=== PATIENT | female | born 1950 | race Caucasian/White ===

== ENCOUNTER 2016-11-06 08:58 | Observation (INO) | payer OTHER ==
[~2016-11-06] VITALS: Ht 162.6 cm; Wt 121.8 kg
[~2016-11-06 08:58] MED LIST: ASPI-119 PO; ATEN50TA PO; GABA300C5 PO; GELFOAM SIZE 100 ONE; GENTAMICIN SULFATE 80 MG/2 ML VIAL ONE; GLIP10TA6 PO; GLIP5TAB8 PO; HYDR-3133 PO; LIDOCAINE 1%/EPINEPHrine 1:100,000 SOLN 20 ML VIAL ONE; THROMBIN (TOPICAL) 5,000 UNIT VIAL ONE; TRIA37.5 PO; VITA400C28 PO
[2016-11-06] MEDS ORDERED: SODIUM CHLORID 0.9% 500 ML IV PRN (09:30)
[2016-11-06] MEDS ORDERED: CHLORHEXIDINE GLUCONATE 2 % 1 PACK (2 CLOTHS) TOPICAL PRN (09:30)
[2016-11-06] MEDS ORDERED: METOPROLOL TARTRATE 25 MG TAB PO PRN (09:30)
[2016-11-06] MEDS ORDERED: INSULIN HUMAN REGULAR 1,000 UNITS/10 ML VIAL SQ PRN (09:30)
[2016-11-06] MEDS ORDERED: ceFAZolin 2 GM PREMIX 50 ML IV SCH (09:30)
[2016-11-06] MEDS ORDERED: LACTATED RINGER'S 1000 ML INJ 1,000 ML IV SCH (09:30)
[2016-11-06] MEDS ORDERED: POVIDONE IODINE 5% (ANTISEPSIS KIT) 4 APPLICATIONS EACH NARE PRN (09:30)
[2016-11-06] MEDS ORDERED: LACTATED RINGER'S 1000 ML IV PRN (09:30)
[2016-11-06] MEDS ORDERED: CLINDAMYCIN PHOS 600 MG/4 ML VIAL ONE (10:13)
[2016-11-06] MEDS ORDERED: SODIUM CHLORIDE 0.9% INJ 100 ML ONE (10:14)
[2016-11-06 10:15] VITALS: BP 167/76; PULSE 55; RESP 20; TEMP 98.5; O2SAT 96
[2016-11-06] MEDS ORDERED: CLINDAMYCIN 600 MG/NS 100 ML IV ONE ×2 (10:30)
[2016-11-06] MEDS ORDERED: ACETAMINOPHEN 1000 MG/100 ML VIAL IV ONE (11:41)
[2016-11-06] MEDS ORDERED: MIDAZOLAM HCL 2 MG/2 ML VIAL ONE (11:42)
[2016-11-06] MEDS ORDERED: FAMOTIDINE 20 MG/2 ML VIAL ONE (11:42)
[2016-11-06] MEDS ORDERED: DEXAMETHASONE SOD PHOS 4 MG/ML VIAL ONE (11:42)
[2016-11-06] MEDS ORDERED: LACTATED RINGER'S 1000 ML INJ 1,000 ML IV ONE (12:00)
[2016-11-06] MEDS ORDERED: NEOSTIGMINE 3 MG/3 ML SYR IV ONE (12:00)
[2016-11-06] MEDS ORDERED: PROPOFOL 200 MG/20 ML AMP IV ONE (12:00)
[2016-11-06] MEDS ORDERED: ePHEDrine/NS 25 MG/5 ML SYR IV ONE (12:00)
[2016-11-06] MEDS ORDERED: ONDANSETRON HCL 4 MG/2 ML VIAL IV PUSH ONE (12:00)
[2016-11-06] MEDS ORDERED: BUPIVACAINE LIPOSOME PF 1.3% 20 ML VIAL INFIL ONE (15:24)
[2016-11-06] MEDS ORDERED: ONDANSETRON HCL 4 MG/2 ML VIAL IV PRN (16:00)
[2016-11-06] MEDS ORDERED: MORPHINE SULFATE 4 MG/ML INJ IV PRN (16:00)
[2016-11-06] MEDS ORDERED: ACETAMINOPHEN/HYDROcodone 325 MG/5 MG TAB PO PRN (16:00)
[2016-11-06] MEDS ORDERED: NALOXONE HCL 0.4 MG/ML AMP IV PRN (16:00)
[2016-11-06] MEDS ORDERED: HYDROmorphone HCL PF 1 MG/ML VIAL IV PRN (16:00)
[2016-11-06] MEDS ORDERED: METHOCARBAMOL 500 MG TAB PO PRN (16:00)
[2016-11-06] MEDS ORDERED: SODIUM CHLORIDE 0.9% FLUSH 5 ML FLUSH IVF PRN (16:00)
[2016-11-06] MEDS ORDERED: DEXTROSE 50% IN WATER 50 ML VIAL(D50) IV PUSH PRN (16:15)
[2016-11-06] MEDS ORDERED: GLUCAGON 1 MG/ML VIAL OTHER PRN (16:15)
--- NOTE | 2016-11-06 16:19 | PD.OP ---
Operative Report Date of Surgery: November 06, 2016 Preoperative Diagnosis: (1) Radiculopathy (2) Spondylosis of lumbar joint (3) Lumbar canal stenosis 1. L4 5 spondylosis and degenerative disc disease with facet instability 2. L4 5 stenosis 3. Bilateral L5 radiculopathy 4. Neurogenic claudication Postoperative Diagnosis: (1) Radiculopathy (2) Lumbar canal stenosis (3) Spondylosis of lumbar joint 1. L4 5 spondylosis and degenerative disc disease with facet instability 2. L4 5 stenosis 3. Bilateral L5 radiculopathy 4. Neurogenic claudication Procedure: 1. Bilateral L4 5 decompressive semi-laminectomy, medial facetectomy, decompression spinal canal and bilateral L5 nerve root-microtechnique 2. Placement L4 5 interspinous process decompression device (Coflex) Anesthesia: Gen. Surgeon: Adarsh Walls Cable Mock Up Assembler(s): Zulma Cartwright Operation and Findings: Procedure in detail: The patient was brought into the operating room and general endotracheal anesthesia induced without difficulty. MYNOR hose and sequential compression devices were placed. The Jha catheter was placed. Lines were established by anesthesia. The patient was positioned on the concentric Mariusz table with the side bolsters and all extremities appropriately padded. Appropriate timeout procedure was performed with all personnel present and in agreement. 1% Xylocaine with epinephrine was used for local infiltration over the incision site which was made at the midline L4 5 level. The incision was carried sharply down to the lumbodorsal fascia which was incised adjacent to the spinous processes. Mcgregor elevator was used for subperiosteal elevation of paraspinous musculature and fascia away from the lamina and spinous process. The deep self-retaining retractor was placed. The appropriate levels were verified with intraoperative C-arm. Microscope was moved into place and used for the remainder of the procedure including the closure. At the L4 5 level starting on the right side and then working across the midline to the opposite side, the TPS drill with a 5 mm bone bur was used to remove the inferior one third of the more cephalad lamina and the superior aspect of the more caudal lamina along with a moderate amount of the bilateral medial facet, taking care not to disrupt the integrity of the facet or pars intra-articularis. There appeared to be at least mild instability of the L4 5 facet prior to the Coflex placement. Great care was taken to remove as little of the facet as possible during the decompression portion of the procedure. The hypertrophied ligamentum flavum was elevated away from the thecal sac with the thin ligament dissector and resected with the 15 blade knife and the Kerrison rongeur out to the level of the deep lateral recess to completely decompress the thecal sac and exiting nerve roots. The exiting nerve roots were followed to the level of the medial pedicle to ensure that they were well decompressed. At the L4 5 level on each side, the superior aspect of the more inferior facet along with hypertrophied ligament at the medial foramen were removed with the Kerrison rongeur to perform the bilateral foraminotomy. The interspinous ligament at the L4 5 level was very deteriorated, with the spinous processes mostly [id number]. The [place] Lance rongeur was used to remove the remaining interspinous ligament and decorticate the inferior L 4 and superior L 5 spinous process edge. The TPS drill was used to flatten out the dorsal aspect of the L4 and L5 lamina, taking care not to compromise the integrity of the lamina. The 16 mm Coflex trial was then placed and appeared to give good support to the spinous processes and facets. Any remaining soft tissue along the interspinous region and epidural space and interlaminar region was carefully removed to provide a clean tract for the Coflex device. The 16 mm Coflex device was then placed at the L4-5 level with the anterior aspect of the device placed as anterior as possible without compromising the thecal sac. The side wings were crimped at the L4 and L5 levels to secure the device. The placement was checked with intraoperative C-arm and felt to be satisfactory. A blunt hook was passed beneath the anterior aspect of the Coflex device to make certain that there was no compromise of the spinal canal. There appeared to be excellent support of the lamina and facet after the device was placed. The nerve roots appeared well decompressed at the end of the procedure. No spinal fluid leakage was encountered. The disc and annulus was visualized to make sure that there was no significant disc displacement or herniation. Bleeding was carefully controlled with the bipolar forceps. The closure was performed with 0 Vicryl interrupted for the deep and superficial fascia, with 3-0 Vicryl interrupted subcutaneous closure, and 4-0 Vicryl running subcuticular closure. A dressing of sterile Mastisol, Steri- Strips, and Primapore was placed. The patient was taken to recovery room in stable condition. All counts were correct at the end of the case. Estimated blood loss was 50 cc. Adarsh Walls MD November 06, 2016 16:19
[2016-11-06] MEDS ORDERED: fentaNYL CITRATE 250 MCG/5 ML AMP ONE (16:35)
[2016-11-06] MEDS: 1/2 NS + KCL 20 MEQ INJ 1,000 ML IV SCH (16:45)
--- NOTE | 2016-11-06 17:47 | RADRPT ---
EXAM DATE/TIME: 11/06/2016 12:55 [facility] COMPARISON: No previous studies available for comparison. INDICATIONS : L4-5 Laminectomy with Coflex placement. MEDICAL HISTORY : Hypertension. Diabetes mellitus type II. Arthritis. SURGICAL HISTORY : None. ENCOUNTER: Subsequent ACUITY: 1 week PAIN SCORE: Non-responsive. LOCATION: Lumbar spine. FINDINGS: A single magnified C-arm spot views a lateral projection at the lower lumbar spine. Dorsal skin retra ctors are seen within the interspinous device noted between the L4 and L5 spinous processes. CONCLUSION: Limited image as detailed above. Cristian Bhakta Jr., MD on November 06, 2016 at 17:44 Board Certified Radiologist. This report was verified electronically.
[2016-11-06 18:00] VITALS: BP 153/68; PULSE 54; RESP 19; TEMP 95.3; O2SAT 96
[2016-11-06] MEDS: GABAPENTIN 300 MG CAP PO SCH (18:31)
[2016-11-06 20:25] VITALS: BP 133/59; PULSE 62; RESP 17; TEMP 97.7; O2SAT 96
[2016-11-06] MEDS: INSULIN NovoLIN REGULAR SUPPLEMENTAL SCALE SQ SCH (21:00)
[2016-11-06] MEDS: SODIUM CHLORIDE 0.9% FLUSH 5 ML FLUSH IVF SCH (21:00)
[2016-11-06] MEDS: hydrOXYzine HCL 25 MG TAB PO SCH (21:13)
[2016-11-06] MEDS: DOCUSATE SODIUM 100 MG CAP PO SCH (21:13)
[2016-11-07] VITALS (8 sets, daily range): BP systolic 105–151; BP diastolic 51–70; PULSE 55–67; RESP 16–18; TEMP 96.8–98.5; O2SAT 93–96
[2016-11-07] MEDS: 1/2 NS + KCL 20 MEQ INJ 1,000 ML IV SCH ×3 (02:00→20:53)
[2016-11-07] MEDS: ACETAMINOPHEN/HYDROcodone 325 MG/10 MG TAB PO PRN ×5 (03:56→20:34)
[2016-11-07] MEDS: glipiZIDE 10 MG TAB PO SCH ×2 (06:30→16:34)
[2016-11-07] MEDS: INSULIN NovoLIN REGULAR SUPPLEMENTAL SCALE SQ SCH ×4 (06:31→20:50)
[2016-11-07 07:57] LABS: AUTOMATED NEUTROPHIL # 8.7 TH/MM3 (1.8-7.7); BASOPHIL % 0.3 % (0.0-2.0); EOSINOPHIL % 0.2 % (0.0-4.0); HEMATOCRIT 40.6 % (35.0-46.0); HEMO FLAGS DIFF FINAL; LYMPH % 16.2 % (9.0-44.0); LYMPHOCYTE # 1.8 TH/MM3 (1.0-4.8); MEAN CORPUSCULAR HEMOGLOBIN 28.5 PG (27.0-34.0); MEAN CORPUSCULAR HGB CONC 33.5 % (32.0-36.0); MONO % 6.6 % (0.0-8.0); NEUT % 76.7 % (16.0-70.0); PLATELET COUNT 233 TH/MM3 (150-450); RED BLOOD COUNT 4.78 MIL/MM3 (4.00-5.30); RED CELL DISTRIBUTION WIDTH 14.2 % (11.6-17.2); WHITE BLOOD COUNT 11.3 TH/MM3 (4.0-11.0)
[2016-11-07 07:58] LABS: BICARBONATE 30.7 MEQ/L (21.0-32.0); POTASSIUM 3.9 MEQ/L (3.5-5.1)
[2016-11-07] MEDS: GABAPENTIN 300 MG CAP PO SCH ×3 (08:32→16:39)
[2016-11-07] MEDS: PANTOPRAZOLE SOD 40 MG DELAYED RELEASE TAB PO SCH (08:32)
[2016-11-07] MEDS: ATENOLOL 50 MG TAB PO SCH (08:33)
[2016-11-07] MEDS: DOCUSATE SODIUM 100 MG CAP PO SCH ×2 (08:33→20:34)
[2016-11-07] MEDS: CHOLECALCIFEROL (VIT D3) 400 UNIT TAB PO SCH (08:33)
[2016-11-07] MEDS: TRIAMTERENE/HCTZ 37.5 MG/25 MG TAB PO SCH (08:33)
[2016-11-07] MEDS: SODIUM CHLORIDE 0.9% FLUSH 5 ML FLUSH IVF SCH ×2 (08:35→20:35)
[2016-11-07] MEDS ORDERED: NON-FORMULARY DRUG (Cholecalciferol (Vitamin D) 1 TAB) PO SCH (09:00)
--- NOTE | 2016-11-07 13:34 | HHI.NSPN ---
(Vikram Pike) Note Status Status: Progress Note (Vikram Pike) Interval History Interval History 11/06: Patient has a history of L4-5 spondylosis and degenerative disc disease with facet instability, L4-5 stenosis, bilateral L5 radiculopathy & neurogenic claudication. She presented to [facility] for a bilateral L4-5 decompressive semi-laminectomy, medial facetectomy, decompression spinal canal & bilateral L5 nerve root-microtechnique and placement L4 5 interspinous process decompression device (Coflex). Post-operatively the patient was admitted to a regular med/surg floor for further care and monitoring. 11/07: The patient was doing well this morning when seen. When she was seen again this afternoon she was extremely drowsy and had some dizziness. She was tolerating a diet. (Vikram Pike) Labs, Micro, & Vital Signs Results Allergies Coded Allergies Type Severity Reaction Last Updated Verified Flu Vaccine Allergy Unknown 11/06/16 Yes Penicillin Allergy Unknown 11/06/16 Yes Prednisone Allergy Unknown 11/06/16 Yes Zithromax Allergy Unknown 11/06/16 Yes Recent Impressions Lumbar Spine X-Ray 11/06/16 0000 Signed Impressions: Service Date/Time: November 12:55 - CONCLUSION: Limited image as detailed above. Cristian Bhakta Jr., MD /// 06:00 18:00 06:00 18:00 06:00 18:00 Intake Total 1000 ml 240 ml 120 ml Output Total 100 ml 70 ml 25 ml Balance 900 ml 170 ml 95 ml Intake Oral 240 ml 120 ml IV Total 100 ml Other 900 ml Output Drainage Total 50 ml 70 ml 25 ml Estimated Blood Loss 50 ml # Voids 2 2 # Bowel Movements 0 0 Laboratory Tests Test 11/06/16 11/07/16 10:05 06:27 Blood Type O POSITIVE Antibody Screen NEGATIVE Blood Bank Comment White Blood Count 11.3 TH/MM3 Red Blood Count 4.78 MIL/MM3 Hemoglobin 13.6 GM/DL Hematocrit 40.6 % Mean Corpuscular Volume 85.0 FL Mean Corpuscular Hemoglobin 28.5 PG Mean Corpuscular Hemoglobin 33.5 % Concent Red Cell Distribution Width 14.2 % Platelet Count 233 TH/MM3 Mean Platelet Volume 8.1 FL Neutrophils (%) (Auto) 76.7 % Lymphocytes (%) (Auto) 16.2 % Monocytes (%) (Auto) 6.6 % Eosinophils (%) (Auto) 0.2 % Basophils (%) (Auto) 0.3 % Neutrophils # (Auto) 8.7 TH/MM3 Lymphocytes # (Auto) 1.8 TH/MM3 Monocytes # (Auto) 0.7 TH/MM3 Eosinophils # (Auto) 0.0 TH/MM3 Basophils # (Auto) 0.0 TH/MM3 CBC Comment DIFF FINAL Differential Comment Sodium Level 138 MEQ/L Potassium Level 3.9 MEQ/L Chloride Level 100 MEQ/L Carbon Dioxide Level 30.7 MEQ/L Anion Gap 7 MEQ/L Blood Urea Nitrogen 28 MG/DL Creatinine 1.28 MG/DL Estimat Glomerular Filtration 42 ML/MIN Rate Random Glucose 218 MG/DL Calcium Level 8.7 MG/DL Constitutional Vital Signs Date Time Temp Pulse Resp B/P Pulse Ox O2 Delivery O2 Flow Rate FiO2 11/07/16 12:35 94 21 11/07/16 08:00 97.2 56 18 125/61 95 11/07/16 04:40 96.9 59 17 151/70 96 11/07/16 00:30 96.8 60 17 127/62 95 11/06/16 20:26 21 11/06/16 20:25 97.7 62 17 133/59 96 11/06/16 18:00 95.3 54 19 153/68 96 11/06/16 17:40 97.8 52 16 125/61 96 Nasal Cannula 3 11/06/16 17:30 52 16 123/62 95 Nasal Cannula 3 11/06/16 17:15 51 16 126/60 94 Nasal Cannula 3 11/06/16 17:00 55 16 127/58 94 Nasal Cannula 3 11/06/16 16:45 58 16 137/63 93 Nasal Cannula 3 11/06/16 16:30 63 16 140/67 98 Simple Mask 8 11/06/16 16:15 99.6 76 20 136/72 97 Simple Mask 8 11/07/16 07:00 Intake Total 1360 ml Output Total 170 ml Balance 1190 ml (Vikram Pike) Review of Systems/Exam ROS Constitutional: Patient states that she feels very drowsy. She denies any fever or chills. Respiratory: She denies any shortness of breath or productive cough. Cardiac: She denies any chest pain, palpitations or irregular heart beat. GI: She denies any abdominal pain, nausea, vomiting or bowel incontinence. : She denies any bladder incontinence. MS: She has multiple thin linear discolourations to the left anterior arm. She denies any arm or leg pain or weakness. Back: She did have some back pain this morning related to position which medication helped with. Neuro: She has some dizziness. She denies any headache, numbness or tingling. Exam General: Patient states that she feels very drowsy. She denies any fever or chills. Respiratory: CTAB w/o W/R/R, equal excursion, non-laboured, on RA. Cardiac: S1S2 w/RRR w/o M/G/R, radial & pedal pulses 2+ bilaterally, cap refill < 2 sec. GI: Abdomen soft, nontender, positive bowel sounds. MS: Extremities normal except for multiple linear discolourations to the left anterior arm which is NTTP. Back: Intact post-surgical dressing w/dried sanguinous drainage to it, ANALI drain w/sanguinous drainage to bulb suction. Neuro: Asleep but awakens to verbal stimuli, oriented to person, place & time. Speech clear & appropriate. Follows simple commands. Sensation grossly intact to light touch to all extremities. Motor strength 5/5 to all major muscle flexion & extension muscle groups to the extremities. (Vikram Pike) Medications Current Medications Current Medications Medications (Trade) Dose Ordered Sig/Terence Route Start Time Stop Time Status Last Admin (NS Flush) 2 ml UNSCH PRN IVF 11/06/16 16:00 IV Flush 2 ml 2 ml BID IVF 11/06/16 21:00 11/06/16 21:00 (1/2 NS + KCl 20 Meq Inj) 1,000 ml @ 100 mls/hr Q10H IV 11/06/16 16:00 11/06/16 16:45 ([place] 5-325 Mg) 1 tab Q4H PRN PO 11/06/16 16:00 ([place] 10-325 Mg) 1 tab Q4H PRN PO 11/06/16 16:00 11/07/16 12:30 (Dilaudid Pf Inj) 0.5 mg Q3H PRN IV 11/06/16 16:00 (Morphine Inj) 4 mg Q3H PRN IV 11/06/16 16:00 (Narcan Inj) 0.4 mg UNSCH PRN IV 11/06/16 16:00 (Colace) 100 mg BID PO 11/06/16 21:00 11/07/16 08:33 (Protonix) 40 mg DAILY PO 11/07/16 09:00 11/07/16 08:32 (Zofran Inj) 4 mg Q6H PRN IV 11/06/16 16:00 (Robaxin) 500 mg Q8HR PRN PO 11/06/16 16:00 (Tenormin) 50 mg DAILY PO 11/07/16 09:00 11/07/16 08:33 (Neurontin) 300 mg TID PO 11/06/16 18:00 11/07/16 12:30 (Glucotrol) 10 mg BIDAC PO 11/07/16 07:00 11/07/16 06:30 (Atarax) 25 mg HS PO 11/06/16 21:00 11/06/16 21:13 (Maxzide 37.5-25 Mg) 1 tab DAILY PO 11/07/16 09:00 11/07/16 08:33 (D50w (Vial) Inj) 25 ml UNSCH PRN IV PUSH 11/06/16 16:15 (Glucagon Inj) 1 mg UNSCH PRN OTHER 11/06/16 16:15 (Vitamin D3) 400 units DAILY PO 11/07/16 09:00 11/07/16 08:33 (Vikram Pike) Medical Decision Making MDM Remarks (1) Radiculopathy (2) Spondylosis of lumbar joint (3) Lumbar canal stenosis 1. L4 5 spondylosis and degenerative disc disease with facet instability 2. L4 5 stenosis 3. Bilateral L5 radiculopathy 4. Neurogenic claudication POD # 1 () s/p: 1. Bilateral L4 5 decompressive semi-laminectomy, medial facetectomy, decompression spinal canal and bilateral L5 nerve root-microtechnique 2. Placement L4 5 interspinous process decompression device (Coflex) Patient basically doing well post-operatively, she is neurologically intact. The ANALI drain put out 120 mL overnight and another 25 mL since this morning when seen this afternoon. Decreased renal function. (Vikram Pike) Plan Plan Remarks Continue IVF of 1/2 NS w/KCl at 100 mL/hr Maintain dressing to surgical site PT to work w/patient Mobilise patient She is to wear the LSO brace when OOB Diet as tolerated Will keep the ANALI drain in place for now Plan to discharge patient home tomorrow (Vikram Pike) Attending Statement I have personally seen and examined the patient on the date of this note. Pertinent documentation and study results have been reviewed by the undersigned. I have personally developed the treatment plan and performed medical decision making. Agree with findings, exam, and treatment plan as noted above. Lower extremity sensorimotor and pain symptoms have essentially resolved postoperative. Moderate low back pain Moderate difficulty mobilizing out of bed Persistent moderate drain output Continue drain for now Plan discontinuation of the drain in a.m. and discharge home. Wound care, activity precautions, signs and symptoms to watch for and all been fully discussed with the patient and all questions answered. (Adarsh Walls MD ) Vikram Pike November 07, 2016 13:34 Adarsh Walls MD November 07, 2016 22:19
--- NOTE | 2016-11-07 17:48 | HHI.DCPOC ---
Discharge Care Plan Diagnosis: (1) Spondylosis of lumbar joint (2) Radiculopathy (3) Lumbar canal stenosis (4) Chronic Renal Failure / insufficiency, unspec Your Health Problems Are: Difficulty with ADL Incision/Drains Exercise Tolerance Goals to Promote Your Health * To prevent worsening of your condition and complications * To maintain your health at the optimal level Directions to Meet Your Goals Take your medications as prescribed Follow your dietary instruction Follow activity as directed Keep your appointments as scheduled Take your immunizations and boosters as scheduled If your symptoms worsen call your PCP, if no PCP go to Urgent Care Center or Emergency Room Smoking is Dangerous to Your Health. Avoid second hand smoke Call the 24-hour hour crisis hotline for domestic abuse at Vikram Pike November 07, 2016 17:48 Adarsh Walls MD November 07, 2016 22:21
--- NOTE | 2016-11-07 17:58 | HHI.DS ---
Discharge Summary Admission Date November 06, 2016 at 18:15 Discharge Date: November 09, 2016 Admitting Diagnosis (1) Radiculopathy (2) Spondylosis of lumbar joint (3) Lumbar canal stenosis 1. L4 5 spondylosis and degenerative disc disease with facet instability 2. L4 5 stenosis 3. Bilateral L5 radiculopathy 4. Neurogenic claudication (1) Radiculopathy ICD Code: M54.10 (2) Spondylosis of lumbar joint Diagnosis: Secondary ICD Code: M47.816 (3) Lumbar canal stenosis Diagnosis: Secondary ICD Code: M48.06 Procedures 1. Bilateral L4 5 decompressive semi-laminectomy, medial facetectomy, decompression spinal canal and bilateral L5 nerve root-microtechnique () 2. Placement L4 5 interspinous process decompression device (Coflex) () CBC/BMP: 11/07/16 0627 11/07/16 0627 Significant Findings Laboratory Tests Test 11/07/16 06:27 White Blood Count 11.3 TH/MM3 (4.0-11.0) Neutrophils (%) (Auto) 76.7 % (16.0-70.0) Neutrophils # (Auto) 8.7 TH/MM3 (1.8-7.7) Blood Urea Nitrogen 28 MG/DL (7-18) Creatinine 1.28 MG/DL (0.50-1.00) Estimat Glomerular Filtration 42 ML/MIN (>89) Rate Random Glucose 218 MG/DL (74-106) Hospital Course Patient has a history of L4-5 spondylosis and degenerative disc disease with facet instability, L4-5 stenosis, bilateral L5 radiculopathy & neurogenic claudication. She presented to [facility] on for a bilateral L4- 5 decompressive semi-laminectomy, medial facetectomy, decompression spinal canal & bilateral L5 nerve root-microtechnique and placement L4 5 interspinous process decompression device (Coflex). Post-operatively the patient was admitted to a regular med/surg floor for further care and monitoring. On the patient was doing well that morning. The ANALI drain had 120 mL output overnight. When she was seen again that afternoon she was extremely drowsy and had some dizziness. She was tolerating a diet and was able to ambulate without difficulty. The drain had 25 mL output from that morning to the time seen and it was decided to keep her another night. The patient's NAALI drain was removed but her blood sugar continued to be elevated on and Endocrinology was consulted. She was evaluated by Endocrinology on and it was felt that she was able to be discharged. Therefore she was discharged home later that day. Pt Condition on Discharge: Good Discharge Disposition: Discharge Home Discharge Instructions DIET: Follow Instructions for: As Tolerated, No Restrictions ACTIVITIES You can perform: Full Weight Bearing Activities to Avoid: Lifting/Bending, Strenuous Activity ADDITIONAL Activity Instructio: Wear the LSO brace for the next 10-14 days. Additional Information Avoid any products that contain aspirin or NSAIDs (ibuprofen, Advil, Aleve, Motrin, etc.) Keep the dressing to the surgical site dry for the next week. You may remove the dressing on Thursday and shower after that. Let the steri-strips off in the shower. Vikram Pike November 07, 2016 17:58
[2016-11-07] MEDS: hydrOXYzine HCL 25 MG TAB PO SCH (20:34)
[2016-11-07] MEDS ORDERED: HYDR-3516 PO (22:23)
[2016-11-08] VITALS (7 sets, daily range): BP systolic 135–160; BP diastolic 60–74; PULSE 53–76; RESP 18–22; TEMP 96.6–99.5; O2SAT 65–98
[2016-11-08] MEDS: ACETAMINOPHEN/HYDROcodone 325 MG/10 MG TAB PO PRN ×3 (03:54→14:37)
[2016-11-08] MEDS: glipiZIDE 10 MG TAB PO SCH ×2 (06:16→16:19)
[2016-11-08] MEDS: INSULIN NovoLIN REGULAR SUPPLEMENTAL SCALE SQ SCH ×4 (06:23→20:47)
[2016-11-08] MEDS: 1/2 NS + KCL 20 MEQ INJ 1,000 ML IV SCH ×3 (08:00→22:54)
[2016-11-08] MEDS: GABAPENTIN 300 MG CAP PO SCH ×3 (08:22→17:12)
[2016-11-08] MEDS: ATENOLOL 50 MG TAB PO SCH (08:30)
[2016-11-08] MEDS: TRIAMTERENE/HCTZ 37.5 MG/25 MG TAB PO SCH (08:30)
[2016-11-08] MEDS: CHOLECALCIFEROL (VIT D3) 400 UNIT TAB PO SCH (08:30)
[2016-11-08] MEDS: PANTOPRAZOLE SOD 40 MG DELAYED RELEASE TAB PO SCH (08:30)
[2016-11-08] MEDS: DOCUSATE SODIUM 100 MG CAP PO SCH ×2 (08:30→20:48)
[2016-11-08] MEDS: SODIUM CHLORIDE 0.9% FLUSH 5 ML FLUSH IVF SCH ×2 (08:33→20:47)
--- NOTE | 2016-11-08 11:56 | HHI.NSPN ---
(Misti Romero) Note Status Status: Progress Note (Misti Romero) Interval History Interval History 11/06: Patient has a history of L4-5 spondylosis and degenerative disc disease with facet instability, L4-5 stenosis, bilateral L5 radiculopathy & neurogenic claudication. She presented to [facility] for a bilateral L4-5 decompressive semi-laminectomy, medial facetectomy, decompression spinal canal & bilateral L5 nerve root-microtechnique and placement L4 5 interspinous process decompression device (Coflex). Post-operatively the patient was admitted to a regular med/surg floor for further care and monitoring. 11/07: The patient was doing well this morning when seen. When she was seen again this afternoon she was extremely drowsy and had some dizziness. She was tolerating a diet. 11/08: Doing okay, pain controlled with current pain medications. Reports of some dizziness, glucose reading this morning in the 200s, no focal complaints, insulin administered . (Misti Romero) Labs, Micro, & Vital Signs Results Date Time Temp Pulse Resp B/P Pulse Ox O2 Delivery O2 Flow Rate FiO2 11/08/16 10:47 95 Nasal Cannula 3.00 11/08/16 09:30 18 11/08/16 07:59 97.7 61 19 135/61 96 11/08/16 04:00 99.5 76 20 151/69 92 11/08/16 00:00 99.0 74 18 160/74 93 11/07/16 23:42 Nasal Cannula 3.00 11/07/16 21:10 93 11/07/16 20:00 98.5 63 16 124/61 93 11/07/16 16:00 98.2 67 18 134/56 93 11/07/16 12:35 94 21 11/07/16 12:00 97.9 55 18 105/51 94 11/08/16 07:00 Intake Total 1620 ml Output Total 75 ml Balance 1545 ml Constitutional Vital Signs Date Time Temp Pulse Resp B/P Pulse Ox O2 Delivery O2 Flow Rate FiO2 11/08/16 10:47 95 Nasal Cannula 3.00 11/08/16 09:30 18 11/08/16 07:59 97.7 61 19 135/61 96 11/08/16 04:00 99.5 76 20 151/69 92 11/08/16 00:00 99.0 74 18 160/74 93 11/07/16 23:42 Nasal Cannula 3.00 11/07/16 21:10 93 11/07/16 20:00 98.5 63 16 124/61 93 11/07/16 16:00 98.2 67 18 134/56 93 11/07/16 12:35 94 21 11/07/16 12:00 97.9 55 18 105/51 94 11/08/16 07:00 Intake Total 1620 ml Output Total 75 ml Balance 1545 ml (Misti Romero) Review of Systems/Exam Exam Alert and awake oriented 3. Speech is fluent. Follows commands well. ANALI drain intact with minimal drainage. Motor: moves upper and lower extremities 5/5 Respiratory: CTA (Misti Romero) Medications Current Medications Current Medications Medications (Trade) Dose Ordered Sig/Terence Route PRN Reason Start Time Stop Time Status Last Admin Dose Admin IV Flush (NS Flush) 2 ml UNSCH PRN IVF FLUSH AFTER USING IV ACCESS 11/06/16 16:00 IV Flush 2 ml 2 ml BID IVF 11/06/16 21:00 11/08/16 08:33 Potassium Chloride/Sodium Chloride (1/2 NS + KCl 20 Meq Inj) 1,000 ml @ 100 mls/hr Q10H IV 11/06/16 16:00 11/06/16 16:45 Acetaminophen/ Hydrocodone Bitart ([place] 5-325 Mg) 1 tab Q4H PRN PO PAIN SCALE 3 TO 5 11/06/16 16:00 Acetaminophen/ Hydrocodone Bitart ([place] 10-325 Mg) 1 tab Q4H PRN PO PAIN SCALE 6 TO 10 11/06/16 16:00 11/08/16 08:30 Hydromorphone HCl (Dilaudid Pf Inj) 0.5 mg Q3H PRN IV Pain 3-5; if unable to take PO 11/06/16 16:00 Morphine Sulfate (Morphine Inj) 4 mg Q3H PRN IV BREAKTHROUGH PAIN 11/06/16 16:00 Naloxone HCl (Narcan Inj) 0.4 mg UNSCH PRN IV SEE LABEL COMMENTS 11/06/16 16:00 Docusate Sodium (Colace) 100 mg BID PO 11/06/16 21:00 11/08/16 08:30 Pantoprazole Sodium (Protonix) 40 mg DAILY PO 11/07/16 09:00 11/08/16 08:30 Ondansetron HCl (Zofran Inj) 4 mg Q6H PRN IV NAUSEA OR VOMITING 11/06/16 16:00 Methocarbamol (Robaxin) 500 mg Q8HR PRN PO SPASM 11/06/16 16:00 Atenolol (Tenormin) 50 mg DAILY PO 11/07/16 09:00 11/08/16 08:30 Gabapentin (Neurontin) 300 mg TID PO 11/06/16 18:00 11/07/16 12:30 Glipizide (Glucotrol) 10 mg BIDAC PO 11/07/16 07:00 11/08/16 06:16 Hydroxyzine HCl (Atarax) 25 mg HS PO 11/06/16 21:00 11/07/16 20:34 Triamterene/HCTZ (Maxzide 37.5-25 Mg) 1 tab DAILY PO 11/07/16 09:00 11/08/16 08:30 Dextrose (D50w (Vial) Inj) 25 ml UNSCH PRN IV PUSH HYPOGLYCEMIA-SEE COMMENTS 11/06/16 16:15 Glucagon (Glucagon Inj) 1 mg UNSCH PRN OTHER HYPOGLYCEMIA-SEE COMMENTS 11/06/16 16:15 Cholecalciferol (Vitamin D3) 400 units DAILY PO 11/07/16 09:00 11/08/16 08:30 (Misti Romero) Medical Decision Making MDM Remarks 66-year-old female status post laminectomy noninsulin dependent Diabetes Mellitus (Misti Romero) Plan Plan Remarks cont close glucose monitoring with insulin SS hold discharge until blood sugars better controlled recommend f/u PCP Thursday dc ANALI drain activity restrictions were discussed, follow up with Dr. Walls's office dw nursing (Misti Romero) Attending Statement The exam, history, and the medical decision-making described in the above note were completed with the assistance of the mid-level provider. I reviewed and agree with the findings presented. I attest that I had a [id number] encounter with the patient on the same day, and personally performed and documented my assessment and findings in the medical record. (Ozzy Harrell MD) Misti Romero November 08, 2016 11:56 Ozzy Harrell MD November 09, 2016 21:07
[2016-11-08] MEDS: hydrOXYzine HCL 25 MG TAB PO SCH (20:48)
[2016-11-09] VITALS (8 sets, daily range): BP systolic 126–155; BP diastolic 58–70; PULSE 60–118; RESP 18–22; TEMP 96–99.3; O2SAT 94–97
[2016-11-09] MEDS ORDERED: ALPRAZolam 0.5 MG TAB PO PRN (03:00)
[2016-11-09] MEDS: ACETAMINOPHEN/HYDROcodone 325 MG/10 MG TAB PO PRN ×2 (03:05→13:04)
[2016-11-09] MEDS: glipiZIDE 10 MG TAB PO SCH (06:19)
[2016-11-09] MEDS: SODIUM CHLORIDE 0.9% FLUSH 5 ML FLUSH IVF SCH (09:00)
[2016-11-09] MEDS: ATENOLOL 50 MG TAB PO SCH (09:57)
[2016-11-09] MEDS: TRIAMTERENE/HCTZ 37.5 MG/25 MG TAB PO SCH (09:57)
[2016-11-09] MEDS: CHOLECALCIFEROL (VIT D3) 400 UNIT TAB PO SCH (09:57)
[2016-11-09] MEDS: PANTOPRAZOLE SOD 40 MG DELAYED RELEASE TAB PO SCH (09:57)
[2016-11-09] MEDS: DOCUSATE SODIUM 100 MG CAP PO SCH (09:57)
[2016-11-09] MEDS: GABAPENTIN 300 MG CAP PO SCH ×2 (09:57→13:00)
[2016-11-09] MEDS: INSULIN NovoLIN REGULAR SUPPLEMENTAL SCALE SQ SCH (10:17)
--- NOTE | 2016-11-09 10:58 | PD.CONS ---
HPI Service [facility] Consult Requested By Primary Care Physician Wanda Puente MD Diagnoses: History of Present Illness Pt is 66 yo pt with htn and dm admitted for lumbar surgery. She had radiculopathy bilaterally L5 distribution and neurogenic claudication. She underwent bilateral L4 5 decompressive semi-laminectomy, medial facetectomy, decompression spinal canal and bilateral L5 nerve root- microtechnique. Placement L4 5 interspinous process decompression device (Coflex) She was scheduled to be discharged today and I was asked to see pt regarding bg over 200 and also some pafib last night. Pt says she always has episodes of pafib at home and her strategic planning analyst is aware and they are trying to get her on "multaq" She also admits not monitoring her bg at home although she does have meter and strips for testing. She takes glipizide and says he doctor gave a prescription for metformin a while back and she never filled it. She at present is only focused on discharge to home. Says she needs to get back to her who is blind. Review of Systems Other poor dm management reports periodically getting palpitations/flutter Past Family Social History Past Medical History hx afib/flutter ckd3 htn dm 2 seizure spondylosis lumbar spine Reported Medications Hydroxyzine HCl 25 Mg Tab 25 Mg PO HS Glipizide 10 Mg Tab 10 Mg PO BIDAC Take 30 minutes before a meal Gabapentin 300 Mg Cap 300 Mg PO TID Vitamin D (Cholecalciferol) 400 Unit Cap 1 Tab PO DAILY Maria A Low Dose (Aspirin) 81 Mg Tabdr 1 Tab PO DAILY Atenolol 50 Mg Tab 50 Mg PO DAILY Triamterene-Hydrochlorothiazide 37.5-25 Mg Tab 1 Tab PO DAILY Allergies: Coded Allergies: Flu Vaccine (Verified Allergy, Unknown, 11/06/16) Penicillin (Verified Allergy, Unknown, 11/06/16) Prednisone (Verified Allergy, Unknown, 11/06/16) Zithromax (Verified Allergy, Unknown, 11/06/16) Family History nc Social History no etoh/tob Physical Exam Vital Signs heart reg lung cta abd s/nt ext no edema Vital Signs Date Time Temp Pulse Resp B/P Pulse Ox O2 Delivery O2 Flow Rate FiO2 11/09/16 09:21 21 11/09/16 08:00 96.0 61 18 133/63 95 11/09/16 04:00 98.0 64 18 137/63 97 5/7/17 03:10 118 11/09/16 02:00 108 134/70 11/09/16 00:00 99.3 65 22 145/66 94 11/08/16 22:15 21 11/08/16 22:03 98.0 59 20 135/60 92 11/08/16 18:49 Room Air 11/08/16 18:49 Room Air 11/08/16 16:05 99.3 64 19 155/67 93 11/08/16 15:37 18 11/08/16 11:41 96.6 53 19 136/63 98 Result Diagram: 11/07/1627 11/07/16626 Assessment and Plan Problem List: (1) DM (diabetes mellitus) Status: Acute Plan: Pt is 66 yo pt with htn and dm admitted for lumbar surgery. She had radiculopathy bilaterally L5 distribution and neurogenic claudication. She underwent bilateral L4 5 decompressive semi-laminectomy, medial facetectomy, decompression spinal canal and bilateral L5 nerve root- microtechnique. Placement L4 5 interspinous process decompression device (Coflex) She was scheduled to be discharged today and I was asked to see pt regarding bg over 200 and also some pafib last night. Pt says she always has episodes of pafib at home and her strategic planning analyst is aware and they are trying to get her on "multaq" She also admits not monitoring her bg at home although she does have meter and strips for testing. She takes glipizide and says he doctor gave a prescription for metformin a while back and she never filled it. She at present is only focused on discharge to home. Says she needs to get back to her who is blind. pt is instructed to check her bg twice daily and take reading to pcp next appt which she already has this month. I will increase her glipizide dose now ..instead of giving the metformin as I worry about her renal function. Pt is to make appt with her strategic planning analyst upon d/c and will call office in morning. cont her bb as directed and seek med attn should her palpitation/flutter get worse or persist before then. she is currently in NSR. she says she is aware of cva risks but she and her strategic planning analyst haven't started anticoagulation. (2) Afib Status: Acute Plan: see above (3) Radiculopathy Status: Acute Plan: see above (4) Spondylosis of lumbar joint Status: Acute Plan: see above (5) Lumbar canal stenosis Status: Acute Plan: see above (6) Chronic kidney disease, stage 3 Status: Chronic (7) Hypertension Status: Chronic Jarred Merritt MD November 09, 2016 10:58
[2016-11-09] MEDS ORDERED: GLIP5TAB8 PO (11:12)
--- NOTE | 2016-11-09 11:31 | HHI.NSPN ---
(Misti Romero) Note Status Status: Progress Note (Misti Romero) Interval History Interval History 11/06: Patient has a history of L4-5 spondylosis and degenerative disc disease with facet instability, L4-5 stenosis, bilateral L5 radiculopathy & neurogenic claudication. She presented to [facility] for a bilateral L4-5 decompressive semi-laminectomy, medial facetectomy, decompression spinal canal & bilateral L5 nerve root-microtechnique and placement L4 5 interspinous process decompression device (Coflex). Post-operatively the patient was admitted to a regular med/surg floor for further care and monitoring. 11/07: The patient was doing well this morning when seen. When she was seen again this afternoon she was extremely drowsy and had some dizziness. She was tolerating a diet. 11/08: Doing okay, pain controlled with current pain medications. Reports of some dizziness, glucose reading this morning in the 200s, no focal complaints, insulin administered . 11/09: blood glucose still in the 200's this morning. Hospitalist consult for bout of Betzy Campbell last night. Patient wanting to go home today. (Misti Romero) Labs, Micro, & Vital Signs Results Date Time Temp Pulse Resp B/P Pulse Ox O2 Delivery O2 Flow Rate FiO2 11/09/16 09:21 21 11/09/16 08:00 96.0 61 18 133/63 95 11/09/16 04:00 98.0 64 18 137/63 97 11/09/16 03:10 118 11/09/16 02:00 108 134/70 11/09/16 00:00 99.3 65 22 145/66 94 11/08/16 22:15 21 11/08/16 22:03 98.0 59 20 135/60 92 11/08/16 18:49 Room Air 11/08/16 18:49 Room Air 11/08/16 16:05 99.3 64 19 155/67 93 11/08/16 15:37 18 11/08/16 11:41 96.6 53 19 136/63 98 11/09/16 07:00 Intake Total 1520 ml Output Total 20 ml Balance 1500 ml Constitutional Vital Signs Date Time Temp Pulse Resp B/P Pulse Ox O2 Delivery O2 Flow Rate FiO2 11/09/16 09:21 21 11/09/16 08:00 96.0 61 18 133/63 95 11/09/16 04:00 98.0 64 18 137/63 97 11/09/16 03:10 118 11/09/16 02:00 108 134/70 11/09/16 00:00 99.3 65 22 145/66 94 11/08/16 22:15 21 11/08/16 22:03 98.0 59 20 135/60 92 11/08/16 18:49 Room Air 11/08/16 18:49 Room Air 11/08/16 16:05 99.3 64 19 155/67 93 11/08/16 15:37 18 11/08/16 11:41 96.6 53 19 136/63 98 11/09/16 07:00 Intake Total 1520 ml Output Total 20 ml Balance 1500 ml (Misti Romero) Review of Systems/Exam Exam Alert and awake oriented 3. Speech is fluent. Follows commands well. Motor: moves upper and lower extremities 5/5 Respiratory: CTA Heart: NSR Abdomen: soft, nontender (Misti Romero) Medications Current Medications Current Medications Medications (Trade) Dose Ordered Sig/Terence Route PRN Reason Start Time Stop Time Status Last Admin Dose Admin IV Flush (NS Flush) 2 ml UNSCH PRN IVF FLUSH AFTER USING IV ACCESS 11/06/16 16:00 IV Flush 2 ml 2 ml BID IVF 11/06/16 21:00 11/08/16 20:47 Potassium Chloride/Sodium Chloride (1/2 NS + KCl 20 Meq Inj) 1,000 ml @ 100 mls/hr Q10H IV 11/06/16 16:00 11/06/16 16:45 Acetaminophen/ Hydrocodone Bitart ([place] 5-325 Mg) 1 tab Q4H PRN PO PAIN SCALE 3 TO 5 11/06/16 16:00 Acetaminophen/ Hydrocodone Bitart ([place] 10-325 Mg) 1 tab Q4H PRN PO PAIN SCALE 6 TO 10 11/06/16 16:00 11/09/16 03:05 Hydromorphone HCl (Dilaudid Pf Inj) 0.5 mg Q3H PRN IV Pain 3-5; if unable to take PO 11/06/16 16:00 Morphine Sulfate (Morphine Inj) 4 mg Q3H PRN IV BREAKTHROUGH PAIN 11/06/16 16:00 Naloxone HCl (Narcan Inj) 0.4 mg UNSCH PRN IV SEE LABEL COMMENTS 11/06/16 16:00 Docusate Sodium (Colace) 100 mg BID PO 11/06/16 21:00 11/09/16 09:57 Pantoprazole Sodium (Protonix) 40 mg DAILY PO 11/07/16 09:00 11/09/16 09:57 Ondansetron HCl (Zofran Inj) 4 mg Q6H PRN IV NAUSEA OR VOMITING 11/06/16 16:00 Methocarbamol (Robaxin) 500 mg Q8HR PRN PO SPASM 11/06/16 16:00 Atenolol (Tenormin) 50 mg DAILY PO 11/07/16 09:00 11/09/16 09:57 Gabapentin (Neurontin) 300 mg TID PO 11/06/16 18:00 11/09/16 09:57 Glipizide (Glucotrol) 10 mg BIDAC PO 11/07/16 07:00 11/09/16 06:19 Hydroxyzine HCl (Atarax) 25 mg HS PO 11/06/16 21:00 11/08/16 20:48 Triamterene/HCTZ (Maxzide 37.5-25 Mg) 1 tab DAILY PO 11/07/16 09:00 11/09/16 09:57 Dextrose (D50w (Vial) Inj) 25 ml UNSCH PRN IV PUSH HYPOGLYCEMIA-SEE COMMENTS 11/06/16 16:15 Glucagon (Glucagon Inj) 1 mg UNSCH PRN OTHER HYPOGLYCEMIA-SEE COMMENTS 11/06/16 16:15 Cholecalciferol (Vitamin D3) 400 units DAILY PO 11/07/16 09:00 11/09/16 09:57 Alprazolam (Xanax) 0.5 mg Q6H PRN PO ANXIETY 11/09/16 03:00 11/09/16 02:59 (Misti Romero) Medical Decision Making MDM Remarks 66-year-old female status post laminectomy noninsulin dependent Diabetes Mellitus (Misti Romero) Plan Plan Remarks medical consultation lobito, addy once cleared medically, f/u PCP in 2-3 days, f/u also Dr. Walls outpatient (Misti Romero) Attending Statement The exam, history, and the medical decision-making described in the above note were completed with the assistance of the mid-level provider. I reviewed and agree with the findings presented. I attest that I had a bdhx-ey-ndon encounter with the patient on the same day, and personally performed and documented my assessment and findings in the medical record. (Ozzy Harrell MD) Misti Romero November 09, 2016 11:31 Ozzy Harrell MD November 09, 2016 21:37
[2016-11-09] MEDS: 1/2 NS + KCL 20 MEQ INJ 1,000 ML IV SCH (14:00)
[2016-11-19] MEDS ORDERED: SOTA80TA PO (13:49)
[2016-11-19] MEDS ORDERED: HYDR-3516 PO (15:26)
[2016-12-19] MEDS ORDERED: LISI10TA3 PO (10:52)
[2016-12-19] MEDS ORDERED: HYDR-3516 PO (11:44)
== END 2016-11-09 16:06 | disposition home or self-care (01) ==
LOC: HSDC 08:58 → N06A 18:15
PROVIDERS: ADMIT Neurological Surgery; ATTEND Neurological Surgery
DX: M51.17 Intervertebral disc disorders with radiculopathy, lumbosacral region (principal); M47.816 Spondylosis without myelopathy or radiculopathy, lumbar region; M48.06 Spinal stenosis, lumbar region; G95.19 Other vascular myelopathies; I48.91 Unspecified atrial fibrillation; I48.92 Unspecified atrial flutter; I12.9 Hypertensive chronic kidney disease with stage 1 through stage 4 chronic kidney disease, or unspecified chronic kidney disease; E11.22 Type 2 diabetes mellitus with diabetic chronic kidney disease; N18.3 Chronic kidney disease, stage 3 (moderate); E66.9 Obesity, unspecified; Z79.84 Long term (current) use of oral hypoglycemic drugs; Z88.1 Allergy status to other antibiotic agents; Z88.0 Allergy status to penicillin; Z88.7 Allergy status to serum and vaccine; Z88.8 Allergy status to other drugs, medicaments and biological substances; Z68.42 Body mass index [BMI] 45.0-49.9, adult
CPT/HCPCS: 63047; 72020; 76000; 80048; 82948; 85025; 86850; 86900; 86901; 94150; 97110; 97161; 97530; C1713; C9290; G0378; J0131; J1100; J1580; J2250; J2405; J2710; J3010; J7120